=== PATIENT | female | born 1965 | race African-American/Black ===

== ENCOUNTER 2018-03-28 08:31 | Emergency (ER) | payer MEDICAID ==
[~2018-03-28] VITALS: Ht 157.5 cm; Wt 61.0 kg
[2018-03-28] MEDS ORDERED: ASPIRIN 81MG TABLET PO ONE (09:15)
[2018-03-28 09:31] LABS: CHLORIDE 100 mEq/L (98-107)
[2018-03-28 09:37] LABS: HEMATOCRIT. 43.5 % (36.0-48.0); HEMOGLOBIN. 14.9 g/dL (12.0-16.0); LYMPHOCYTES % 28.5 % (20.0-50.0); MEAN CORPUSCULAR HEMOGLOBIN 32.1 pg (28.0-32.0); MEAN CORPUSCULAR VOLUME 93.6 fL (81.0-99.0); MEAN PLATELET VOLUME 7.6 fl (7.4-10.4); MONOCYTES % 10.8 % (2.0-8.0); NEUTROPHILS % 58.7 % (40.0-76.0); PLATELET 321 x1000/uL (130-400); RED BLOOD CELL COUNT 4.65 mill/uL (4.2-5.4); RED CELL DISTRIBUTION WIDTH 13.8 % (11.6-14.6)
[2018-03-28 11:04] LABS: CLARITY URINE CLOUDY (CLEAR); COLOR URINE ORANGE (YELLOW); KETONES URINE 1+ (NEGATIVE); LEUKOCYTE ESTERASE URINE 2+ (NEGATIVE); NITRITE URINE POSITIVE (NEGATIVE); OCCULT BLOOD URINE NEGATIVE (NEGATIVE); PH URINE 8.5 (4.5-8.0); PROTEIN URINE 1+ (NEGATIVE); SPECIFIC GRAVITY URINE 1.026 (1.005-1.030)
[2018-03-28] MEDS ORDERED: ONDANSETRON HCL 4MG/2ML INJ IV NR (12:00)
[2018-03-28] MEDS ORDERED: AZITHROMYCIN 500 MG TABLET PO NR (12:00)
[2018-03-28] MEDS ORDERED: METRONIDAZOLE 500MG TABLET PO NR (12:00)
[2018-03-28] MEDS ORDERED: CEFTRIAXONE 1 G PREMIX 50 ML IV NR (12:00)
[2018-03-28 14:20] VITALS: BP 129/76
== END 2018-03-28 14:21 | disposition home or self-care (01) ==
LOC: ER 08:31
DX: A59.9 Trichomoniasis, unspecified (principal); J20.9 Acute bronchitis, unspecified; F17.200 Nicotine dependence, unspecified, uncomplicated; Z98.890 Other specified postprocedural states
CPT/HCPCS: 36415; 71045; 80053; 81003; 83880; 84484; 85025; 93005; 96365; 96375; 99285; J0696; J2405; Z7610

== ENCOUNTER 2019-08-01 07:58 | Emergency (ER) | payer MEDICAID ==
[~2019-08-01] VITALS: Ht 157.5 cm; Wt 91.0 kg
[2019-08-01 08:02] VITALS: BP 129/89
== END 2019-08-01 10:55 | disposition home or self-care (01) ==
LOC: ER 07:58
DX: J06.9 Acute upper respiratory infection, unspecified (principal); Z98.890 Other specified postprocedural states
CPT/HCPCS: 99281

== ENCOUNTER 2020-06-24 08:15 | Emergency (ER) | payer MEDICAID ==
[~2020-06-24] VITALS: Ht 162.6 cm; Wt 63.5 kg
[2020-06-24] MEDS ORDERED: KETOROLAC 60MG/2ML VIAL IM ONE (09:00)
[2020-06-24 09:14] VITALS: BP 143/88
== END 2020-06-24 09:16 | disposition home or self-care (01) ==
LOC: ER 08:32
DX: J02.9 Acute pharyngitis, unspecified (principal); Z20.828 Contact with and (suspected) exposure to other viral communicable diseases; Z98.890 Other specified postprocedural states
CPT/HCPCS: 96372; 99283; C9803; J1885; U0003